=== PATIENT | male | born 1980 | race Two or more races ===

== ENCOUNTER 2023-03-06 13:57 | Emergency (ER) | payer MEDICAID ==
[~2023-03-06] VITALS: Ht 172.7 cm; Wt 86.4 kg
[2023-03-06 15:00] VITALS: TEMP 99.9
[2023-03-06 15:03] LABS: INFLUENZA A-RTPCR,COMBO NEGATIVE FOR FLU A (NEGATIVE); INFLUENZA B-RTPCR,COMBO NEGATIVE FOR FLU B (NEGATIVE); RESPIRATORY SYNCYTIAL VRS-PCR NEGATIVE (NEGATIVE)
[2023-03-06 15:09] LABS: SARS COVID19 RTPCR, COMBO POSITIVE (NEGATIVE)
[2023-03-06] MEDS ORDERED: GuaiFENesin/D-METHORPHAN [SUGAR-FREE] 200-20MG/10 ML SYRUP UDCUP PO ONE (15:15)
[2023-03-06] MEDS ORDERED: IBUPROFEN 600 MG TABLET PO ONE (15:15)
[2023-03-06] MEDS ORDERED: GUAIFDM PO (15:18)
[2023-03-06] MEDS ORDERED: ACET-2080 PO (15:18)
[2023-03-06] MEDS ORDERED: IBUP-1554 PO (15:18)
[2023-03-06] MEDS ORDERED: NIRM1TAB4 PO (15:18)
[2023-03-06 15:48] VITALS: BP 133/74; PULSE 96; RESP 16
== END 2023-03-06 16:10 | disposition home or self-care (01) ==
LOC: EMS 13:58
DX: J06.9 Acute upper respiratory infection, unspecified (principal); Z20.822 Contact with and (suspected) exposure to COVID-19
CPT/HCPCS: 99283; 0241U; 87430

== ENCOUNTER 2023-03-10 15:09 | Emergency (ER) | payer MEDICAID ==
[~2023-03-10] VITALS: Ht 175.3 cm; Wt 90.0 kg
[~2023-03-10 15:09] MED LIST: ACET-2080 PO; GUAIFDM PO; IBUP-1554 PO; NIRM1TAB4 PO
[2023-03-10 15:16] VITALS: BP 135/70; PULSE 83; RESP 20; TEMP 98.6
[2023-03-10] MEDS ORDERED: BACL10TA PO (16:35)
[2023-03-10] MEDS ORDERED: LIDO700A15 TP (16:38)
[2023-03-10] MEDS ORDERED: IBUP-1492 PO (16:38)
[2023-03-10] MEDS ORDERED: BACLOFEN 10 MG TABLET PO ONE (16:45)
[2023-03-10] MEDS ORDERED: LIDOCAINE 5% TRANSDERMAL PATCH TD ONE (16:45)
[2023-03-10] MEDS ORDERED: KETOROLAC TROMETHAMINE 30 MG/ML VIAL IM ONE (16:45)
== END 2023-03-10 17:40 | disposition home or self-care (01) ==
LOC: EMS 15:09
DX: M54.32 Sciatica, left side (principal)
CPT/HCPCS: 99283; 96372; J1885

== ENCOUNTER 2023-07-27 20:43 | Emergency (ER) | payer MEDICAID, OTHER ==
[~2023-07-27] VITALS: Ht 170.2 cm; Wt 90.0 kg
[~2023-07-27 20:43] MED LIST changes: -ACET-2080 PO; +BACL10TA PO; -GUAIFDM PO; +IBUP-1492 PO; -IBUP-1554 PO; +LIDO700A15 TP; -NIRM1TAB4 PO
[2023-07-27 20:45] VITALS: BP 138/76; PULSE 66; RESP 16; TEMP 98.1
[2023-07-27] MEDS: KETOROLAC TROMETHAMINE 60 MG/2 ML VIAL IM ONE (21:54)
[2023-07-27] MEDS: METHOCARBAMOL 500 MG TABLET PO ONE (21:55)
[2023-07-27] MEDS: ACETAMINOPHEN 500 MG TABLET PO ONE (21:55)
[2023-07-27] MEDS ORDERED: IBUP-1492 PO (23:08)
[2023-07-27] MEDS ORDERED: METH-812 PO (23:08)
[2023-07-27] MEDS ORDERED: LIDO700A15 TP (23:08)
== END 2023-07-27 23:19 | disposition home or self-care (01) ==
LOC: EMS 20:43
DX: M25.511 Pain in right shoulder (principal)
CPT/HCPCS: 99283; 73030; 96372; J1885

== ENCOUNTER 2024-01-01 11:22 | Emergency (ER) | payer OTHER ==
[~2024-01-01] VITALS: Ht 170.2 cm; Wt 90.0 kg
[~2024-01-01 11:22] MED LIST changes: +METH-812 PO
[2024-01-01 11:24] VITALS: TEMP 99.2
[2024-01-01 11:39] LABS: COVID AG,FIA SOURCE NASAL SWAB
[2024-01-01 12:11] LABS: SARS-COV2 (COVID) ANTIGEN,FIA Negative (Negative)
[2024-01-01 12:12] LABS: INFLUENZA TYPE A NEGATIVE FOR TYPE A (NEGATIVE); INFLUENZA TYPE B NEGATIVE FOR TYPE B (NEGATIVE)
[2024-01-01 13:07] VITALS: BP 128/85; PULSE 70; RESP 18; O2SAT 98
[2024-01-01] MEDS ORDERED: IBUP-1492 PO (13:14)
[2024-01-01] MEDS ORDERED: ACET-3385 PO (13:14)
[2024-01-01] MEDS: IBUPROFEN 600 MG TABLET PO ONE (13:15)
[2024-01-01] MEDS: ACETAMINOPHEN 500 MG TABLET PO ONE (13:15)
== END 2024-01-01 13:52 | disposition home or self-care (01) ==
LOC: EMS 11:22
DX: B34.9 Viral infection, unspecified (principal); R05.9 Cough, unspecified; M79.10 Myalgia, unspecified site; Z20.822 Contact with and (suspected) exposure to COVID-19
CPT/HCPCS: 87804; 99283

== ENCOUNTER 2024-01-06 22:12 | Emergency (ER) | payer OTHER ==
[~2024-01-06] VITALS: Ht 175.3 cm; Wt 95.5 kg
[~2024-01-06 22:12] MED LIST changes: +ACET-3385 PO
[2024-01-06 22:31] VITALS: BP 135/103; PULSE 79; RESP 18; TEMP 98.9; O2SAT 96
[2024-01-07] MEDS ORDERED: AMOX500C2 PO (01:22)
== END 2024-01-07 02:02 | disposition home or self-care (01) ==
LOC: EMS 22:12
DX: H66.92 Otitis media, unspecified, left ear (principal); H61.22 Impacted cerumen, left ear; J18.0 Bronchopneumonia, unspecified organism
CPT/HCPCS: 69209; 71045; 99283

== ENCOUNTER 2024-03-14 11:54 | Emergency (ER) | payer OTHER ==
[~2024-03-14] VITALS: Ht 172.7 cm; Wt 90.0 kg
[~2024-03-14 11:54] MED LIST changes: +AMOX500C2 PO
[2024-03-14 12:09] VITALS: BP 138/90; PULSE 68; RESP 14; TEMP 98.1; O2SAT 98
[2024-03-14] MEDS ORDERED: IBUP-1554 PO (13:52)
[2024-03-14] MEDS ORDERED: ACET-66 PO (13:52)
[2024-03-14] MEDS ORDERED: BACI28.410 TP (13:52)
[2024-03-14] MEDS: IBUPROFEN 600 MG TABLET PO ONE (15:00)
[2024-03-14] MEDS: ACETAMINOPHEN 500 MG TABLET PO ONE (15:00)
[2024-03-14] MEDS: ONDANSETRON 4 MG TABLET PO ONE (15:00)
== END 2024-03-14 15:09 | disposition home or self-care (01) ==
LOC: EMS 12:04
DX: S00.83XA Contusion of other part of head, initial encounter (principal); S40.022A Contusion of left upper arm, initial encounter; S20.211A Contusion of right front wall of thorax, initial encounter; Y04.8XXA Assault by other bodily force, initial encounter; Y93.89 Activity, other specified; Y92.89 Other specified places as the place of occurrence of the external cause
CPT/HCPCS: 99284; Q0162